=== PATIENT | male | born 1950 | race African-American/Black ===

== ENCOUNTER 2020-09-17 15:35 | Emergency (ER) | payer OTHER | END 2020-09-17 16:30 | disposition home or self-care (01) | LOC: MADERS 15:35 | DX: M70.21 Olecranon bursitis, right elbow (principal); I10 Essential (primary) hypertension; Z79.899 Other long term (current) drug therapy | CPT/HCPCS: 99283 ==

== ENCOUNTER 2021-02-03 14:02 | Emergency (ER) | payer OTHER | END 2021-02-03 14:24 | disposition home or self-care (01) | LOC: MADERS 14:02 | DX: L03.313 Cellulitis of chest wall (principal); L03.112 Cellulitis of left axilla; I10 Essential (primary) hypertension | CPT/HCPCS: 99283 ==

== ENCOUNTER 2023-03-29 13:43 | Emergency (ER) | payer OTHER ==
[2023-03-29 14:13] LABS: Bilirubin Negative (Negative); Blood, Urine Trace (Negative); Clarity Clear (Clear); Glucose, Urine (Dipstick) Negative (Negative); Ketone, Urine Negative (Negative); Leukocyte Trace (Negative); Nitrite Positive (Negative); Protein, Urine (Dipstick) 30 mg/dL (Neg-Trace); Urobilinogen 0.2 mg/dL (Less than 2)
[2023-03-29 14:16] LABS: Specific Gravity, Urine 1.028 (1.002-1.036)
[2023-03-29 14:23] LABS: Bacteria/HPF 2+ HPF (None Seen); CAUTI Indications for Culture Dysuria,urgency,freq
[2023-03-29 14:24] LABS: Urine Culture Reflex Yes Yes
[2023-03-29] MEDS ORDERED: Tamsulosin HCl 0.4 MG CAP ONE (15:32)
[2023-03-29] MEDS ORDERED: cefTRIAXone (ROCEPHIN) 1 GM VIAL ONE (15:52)
[2023-03-30 14:14] LABS: Chlam.trachomatis by PCR,Urine Not Detected (NotDetected); GC N.gonorrhoeae PCR,UrineVOID Not Detected (NotDetected)
== END 2023-03-29 16:06 | disposition home or self-care (01) ==
LOC: MADERS 13:43
DX: N39.0 Urinary tract infection, site not specified (principal); N40.1 Benign prostatic hyperplasia with lower urinary tract symptoms; I10 Essential (primary) hypertension
CPT/HCPCS: 81001; 87077; 87086; 87186; 87491; 87591; 96372; 99283; J0696

== ENCOUNTER 2023-04-05 13:56 | Emergency (ER) | payer OTHER ==
[~2023-04-05 13:56] MED LIST: Iopamidol 370 76% 100 ML VIAL ONE
[2023-04-05 17:17] LABS: #Basophils 0.1 thou/uL (0.0-0.2); #Eosinphils 0.1 thou/uL (0.0-0.7); #Lymphocytes 2.2 thou/uL (1.20-3.40); #Monocytes 0.6 thou/uL (0.11-0.59); #Neutrophils 6.5 thou/uL (1.40-6.50); %Basophils 0.7 % (0.0-1.0); %Eosinophils 1.3 % (0.0-10.0); %Lymphocytes 23.6 % (21.0-51.0); %Monocytes 6.3 % (0.0-10.0); %Neutrophils 68.1 % (42.0-75.0); Hematocrit 49.4 % (42.0-52.0); Hemoglobin 15.3 g/dL (14.0-18.0); Mean Corpuscular HGB CONC 31.1 g/dL (32.0-36.0); Mean Corpuscular Hemoglobin 32.2 pg (27.0-31.0); Mean Corpuscular Volume 103.7 fl (78.0-98.0); Platelet Count 370 10x3/uL (130-400); RBC Distribution Width 12.3 % (11.5-14.5); Red Blood Cell (RBC) Count 4.76 mill/uL (4.70-6.10); White Blood Cell (WBC) Count 9.5 10x3/uL (4.8-10.8)
[2023-04-05 17:27] LABS: ALT (SGPT) 14 U/L (8-55); AST (SGOT) 17 U/L (5-34); Albumin 4.1 g/dL (3.4-4.8); Alkaline Phosphatase 33 U/L (40-110); Anion Gap 14 mmol/L (10-20); BUN (Urea Nitrogen) 14 mg/dL (8.4-25.7); Bilirubin, Total 0.7 mg/dL (0.2-1.2); Calc. Creatinine Clearance 0 mL/min (70-130); Carbon Dioxide 25 mmol/L (23-31); Chloride 108 mmol/L (98-107); Estimated GFR 60; Glucose 107 mg/dL (83-110); Lipase 38 U/L (8-78); Potassium 4.2 mmol/L (3.5-5.1); Protein, Total 8.1 g/dL (5.8-8.1); Sodium 143 mmol/L (136-145)
[2023-04-05 19:00] LABS: Bilirubin Negative (Negative); Blood, Urine Small (Negative); Clarity Clear (Clear); Glucose, Urine (Dipstick) Negative (Negative); Ketone, Urine Negative (Negative); Leukocyte Negative (Negative); Nitrite Negative (Negative); Protein, Urine (Dipstick) 30 mg/dL (Neg-Trace); Specific Gravity, Urine 1.025 (1.005-1.030); Urobilinogen 0.2 mg/dL (Less than 2); pH, Urine 5.5 (5.0-9.0)
[2023-04-05 19:16] LABS: Bacteria/HPF Rare-Few HPF (None Seen); CAUTI Indications for Culture Dysuria,urgency,freq; Squamous Epithelial 0-3 HPF (0-3); Urine Culture Reflex No No; WBC/HPF 0-3 HPF (0-3)
== END 2023-04-05 19:45 | disposition home or self-care (01) ==
LOC: MADERS 13:56
DX: A60.9 Anogenital herpesviral infection, unspecified (principal); N30.90 Cystitis, unspecified without hematuria; R91.1 Solitary pulmonary nodule; I10 Essential (primary) hypertension
CPT/HCPCS: 51798; 74177; 80053; 81001; 82274; 83605; 83690; 85025; 94760; Q9967

== ENCOUNTER 2023-12-08 14:43 | Emergency (ER) | payer OTHER ==
[2023-12-08 16:33] LABS: #Basophils 0.1 thou/uL (0.0-0.2); #Eosinphils 0.1 thou/uL (0.0-0.7); #Lymphocytes 2.3 thou/uL (1.20-3.40); #Neutrophils 6.4 thou/uL (1.40-6.50); %Basophils 1.1 % (0.0-1.0); %Eosinophils 0.9 % (0.0-10.0); %Monocytes 10.4 % (0.0-10.0); %Neutrophils 64.6 % (42.0-75.0); Hematocrit 48.3 % (42.0-52.0); Hemoglobin 14.9 g/dL (14.0-18.0); Mean Corpuscular HGB CONC 30.9 g/dL (32.0-36.0); Mean Corpuscular Hemoglobin 31.3 pg (27.0-31.0); Mean Corpuscular Volume 101.5 fl (78.0-98.0); Platelet Count 225 10x3/uL (130-400); RBC Distribution Width 11.8 % (11.5-14.5); Red Blood Cell (RBC) Count 4.76 mill/uL (4.70-6.10); White Blood Cell (WBC) Count 9.9 10x3/uL (4.8-10.8)
[2023-12-08 16:42] LABS: ALT (SGPT) 13 U/L (8-55); AST (SGOT) 19 U/L (5-34); Albumin 3.9 g/dL (3.4-4.8); Alkaline Phosphatase 53 U/L (40-110); Anion Gap 15 mmol/L (10-20); BUN (Urea Nitrogen) 10 mg/dL (8.4-25.7); Bilirubin, Total 0.6 mg/dL (0.2-1.2); Calc. Creatinine Clearance 0 mL/min (70-130); Calcium 8.9 mg/dL (7.8-10.44); Carbon Dioxide 26 mmol/L (23-31); Chloride 106 mmol/L (98-107); Estimated GFR 60; Globulin 3.6 g/dL (2.4-3.5); Glucose 108 mg/dL (83-110); Potassium 4.2 mmol/L (3.5-5.1); Protein, Total 7.5 g/dL (5.8-8.1); Sodium 143 mmol/L (136-145)
[2023-12-08] MEDS ORDERED: Acetaminophen 500 MG TAB ONE (16:45)
[2023-12-08] MEDS ORDERED: Iopamidol 370 76% 100 ML VIAL ONE (16:47)
[2023-12-08] MEDS ORDERED: Lidocaine 1% (PF) 30 ML VIAL ONE (18:08)
== END 2023-12-08 19:50 | disposition home or self-care (01) ==
LOC: MADERS 14:43
DX: L03.211 Cellulitis of face (principal); L72.3 Sebaceous cyst; I10 Essential (primary) hypertension; F17.210 Nicotine dependence, cigarettes, uncomplicated; Z79.899 Other long term (current) drug therapy
CPT/HCPCS: 10060; 70487; 80053; 85025; 87040; 87070; 87076; 87205; J2001; Q9967